=== PATIENT | male | born 1975 | race African-American/Black ===

== ENCOUNTER 2017-02-02 17:03 | Emergency (ER) | payer BC ==
[~2017-02-02] VITALS: Ht 180.3 cm; Wt 81.1 kg
[~2017-02-02 17:03] MED LIST: NOHOMEMEDS
[2017-02-02 19:20] LABS: HEMATOCRIT 41.8 % (38.0-50.0); MCH 32.6 PG (29.0-34.0); MCHC 32.8 G/DL (30.0-36.0); MCV 99.5 FL (86-99); MEAN PLAT.VOLUME 8.9 uM^3 (9.0-12.4); PLATELET COUNT 341 K/uL (156-360); RBC DIS.WIDTH-CV 11.6 % (11.8-14.6); RBC DIS.WIDTH-SD 42.5 % (39-53)
[2017-02-02 19:31] LABS: CHLORIDE 105 mEq/L (99-109); SODIUM 140 mEq/L (136-147)
[2017-02-02 19:33] LABS: GLUCOSE 87 mg/dL (70-99)
[2017-02-02 19:34] LABS: ANION GAP 9 MEQ/L (2-14)
[2017-02-02 19:36] LABS: GFR ESTIMATE (CALCULATED) > 59 mL/min/
[2017-02-02 19:37] LABS: UREA NITROGEN (BUN) 13 mg/dL (9-23)
[2017-02-02 19:42] LABS: TROP-I INTERPRETATION NEGATIVE; TROPONIN-I < 0.01 ng/mL (0.0-0.30)
[2017-02-02 22:42] LABS: TROP-I INTERPRETATION NEGATIVE; TROPONIN-I < 0.01 ng/mL (0.0-0.30)
[2017-02-02 22:56] VITALS: BP 122/78
== END 2017-02-02 22:57 | disposition home or self-care (01) ==
LOC: EME 17:03
PROVIDERS: Nurse Practitioner Family
DX: J06.9 Acute upper respiratory infection, unspecified (principal); R07.9 Chest pain, unspecified; Z87.891 Personal history of nicotine dependence
CPT/HCPCS: 71020; 80048; 84484; 85027; 93005; 99281; 99284